=== PATIENT | female | born 1965 | race Native Hawaiian/Other Pacific Islander ===

== ENCOUNTER → 2016-09-09 | Outpatient (CLI) | payer BC ==
[~2016-09-09] MED LIST: AMLO5TAB2 PO; CYCL-36 PO; CYCL1TAB29 PO; GABA300C3 PO; GABA300C5 PO; NORC10TA2 PO; SYNT200T PO; TOPA50TA7 PO; TOPI50TA4 PO
--- NOTE | 2016-09-10 08:30 | RSPPFT ---
DATE OF PROCEDURE: 09/09/16 COMMENTS: VOLUMES DYNAMIC: FVC and FEV1 pre-bronchodilator severely reduced; post-bronchodilator normal. STATIC: VTG and RV normal; TLC mildly decreased. FLOWS: FEV1% normal; FEF 25-75 pre-bronchodilator severely reduced; post-bronchodilaotr Normal. DIFFUSION: Unable to perform. FLOW VOLUME LOOP: Post-bronchodilator restricted. IMPRESSION: These are difficult to interpret because post-bronchodilator her pulmonary function is nearly normal. The pre-bronchodilator study is probably inaccurate. She was unable to perform the diffusion capacity and her total lung capacity was mildly restricted at 63%. Clinical correlation is required.
== END ==
LOC: HRSP 09:41
PROVIDERS: ATTEND Internal Medicine Cardiovascular Disease
DX: R06.02 Shortness of breath (principal)
CPT/HCPCS: 94060; 94726; 94729

== ENCOUNTER 2017-03-22 10:26 | Day surgery (SDC) | payer BC ==
[~2017-03-22] VITALS: Ht 165.1 cm; Wt 58.4 kg
[2017-03-22] MEDS ORDERED: IOHEXOL 350 MG/ML 50 ML BTL (for Cath Lab) OTHER ONE (10:27)
[2017-03-22] MEDS ORDERED: PULM1SUS NEB (11:01)
[2017-03-22] MEDS ORDERED: BROV15NE NEB (11:01)
[2017-03-22] MEDS ORDERED: LEVO.2 PO (11:01)
[2017-03-22] MEDS ORDERED: TRAD5TAB PO (11:01)
[2017-03-22] MEDS ORDERED: FURO1TAB62 PO (11:01)
[2017-03-22] MEDS ORDERED: ISOS30TA3 PO (11:01)
[2017-03-22] MEDS ORDERED: ASPI81TA81 (11:01)
[2017-03-22 11:05] VITALS: BP 153/104; PULSE 86; RESP 18; TEMP 98.2; O2SAT 96
[2017-03-22] MEDS ORDERED: NS 1000P @30 MLS/HR (KVO) IV SCH (11:15)
[2017-03-22 11:43] LABS: AUTOMATED NEUTROPHIL # 6.6 TH/MM3 (1.8-7.7); BASOPHIL # 0.1 TH/MM3 (0-0.2); BASOPHIL % 0.5 % (0.0-2.0); EOSINOPHIL # 0.1 TH/MM3 (0-0.4); EOSINOPHIL % 0.8 % (0.0-4.0); HEMATOCRIT 35.6 % (35.0-46.0); HEMO FLAGS DIFF FINAL; LYMPH % 29.4 % (9.0-44.0); MEAN CELL VOLUME 70.8 FL (80.0-100.0); MEAN CORPUSCULAR HEMOGLOBIN 22.3 PG (27.0-34.0); MEAN CORPUSCULAR HGB CONC 31.5 % (32.0-36.0); MONO % 5.3 % (0.0-8.0); PLATELET COUNT 355 TH/MM3 (150-450); RED BLOOD COUNT 5.03 MIL/MM3 (4.00-5.30); RED CELL DISTRIBUTION WIDTH 16.7 % (11.6-17.2); WHITE BLOOD COUNT 10.3 TH/MM3 (4.0-11.0)
[2017-03-22 11:46] LABS: APTT (PATIENT) 28.6 SEC (24.3-30.1); INTERNATIONAL NORMALIZED RATIO 0.9 RATIO; PROTHROMBIN TIME - PATIENT 10.3 SEC (9.8-11.6)
[2017-03-22 12:05] LABS: BICARBONATE 24.3 MEQ/L (21.0-32.0); POTASSIUM 3.3 MEQ/L (3.5-5.1)
[2017-03-22] MEDS ORDERED: SODIUM CHLOR 0.9% 1000 ML INJ 1,000 ML IV SCH (12:57)
[2017-03-22] MEDS ORDERED: ASPIRIN 325 MG TAB PO SCH (13:00)
[2017-03-22] MEDS ORDERED: HEPARIN-NS/PF INJ 1,000 ML ONE (14:09)
[2017-03-22] MEDS ORDERED: SODIUM CHLORID 0.9% 500 ML INJ 500 ML ONE (14:11)
[2017-03-22] MEDS ORDERED: MIDAZOLAM HCL 2 MG/2 ML VIAL ONE ×2 (14:14→14:31)
--- NOTE | 2017-03-22 15:08 | CATHPROC ---
[facility] HIS Report Study Information Study Number Admission Scheduled Start Study Start [id number] Mar 22 2017 10:26AM 03/22/2017 Mar 22 2017 2:10PM [place] Cardiac Catheterization Admit Source Facility Department Other [facility] - Housekeeping Laundry Worker Physician and Clinical Staff Initial MD Gray, Karen Offender Job Retention Specialist Ezekiel RN, Kareem Other Vick Tinsley,CATHY Recorder Katrin Aguilar,(R) Scrub Tip Arias RCIS(BS) Procedures Performed Procedure Location (Site) Vessel Name Coronary Angiograms LCA Left Coronary Coronary Angiograms RCA Right Coronary L Heart Cath LV Gram-hand inj. LV LV Ventricle Wire insertion Fem Art (right) Femoral Art Equipment Time Assistant Accounting Manager Description Size Mfg Part Number Used/Scraped TRANSDUCER, TRSCOTTY [id number] 14:18 Remitly * Used W/STOCKCOCK *[id number] [id number] *[id number] [id number] *[id number] [id number] *[id number] [id number] *[id number] 14:18 [employer] PACK, CCL CUSTOM * Used *[id number] 14:18 [employer]. PACER PEN, SKIN DUAL W/ RULER * Used *[id number] 14:18 [employer] WIRE, 3MMJ .035 180CM 180CM Used *[id number] PROBE COVER, STERILE [id number] 14:18 [employer] * Used ULTRASOUND W/ GEL *[id number] 14:18 NAMIC MANIFOLD, 4 PORT * Used *[id number] 14:18 [employer]COMED OMNIPAQUE, 350 MG, 150ML 150ML [id number] Used 14:37 [employer]COMED OMNIPAQUE, 350 MG, 150ML 150ML [id number] Used 14:37 NYCOMED OMNIPAQUE, 350 MG, 150ML 150ML [id number] Used [id number] 14:18 [employer],WARM AIR CCL * Used *[id number] 14:18 [employer] MEDICAL SHEATH, FR4 TERUMO (10CM) FR 4 Used *[id number] History: Current Medications Medication Dosage/Unit Route Frequency Last Date/Time Taken ASA Synthroid HCTZ LASIX NORVASC History: Allergies Allergy Reaction meperidine Nausea/Vomiting History: Risk Factors Family History of Hypertension Dyslipidemia Previous [place] Previous Heart Failure Premature CAD Yes No No No No Prior Valve Prior PCI Prior CABG Surgery No No No Cerebrovascular Peripheral Artery Chronic Lung On Dialysis Diabetes Diabetes Therapy Disease Disease Disease No Yes No No Yes Oral History: Symptoms/Diagnosis Selection Items Chest pain SOB History: Stress Tests Stress or Imaging Studies Performed Yes Standard Exercise Stress Test No Stress Echo No Stress Test SPECT Stress Test SPECT Result Yes Negative Stress Test CMR No Cardiac CTA Coronary Calcium Score No No History: Other Disease Selection Items HTN History: Other Current Smoker No Labs Hgb (g/dl) Hct (%) RBC (MIL/MM3) WBC (l/cumm) Platelets (thousands) 11.60-17.00 35.00-51.00 4.00-5.90 4.00-11.00 150.00-450.00 11.2 35.6 5 10.3 355 Glucose (mg/dl) BUN (mg/dl) Creatinine (mg/dl) BUN:Creatinine (1:x) 74.00-106.00 7.00-18.00 0.50-1.30 10.00-20.00 167 9 0.8 11.3 Na (meq/l) K (meq/l) Cl (meq/l) CO2 (mmol/L) Ca (mg/dl) 136.00-145.00 3.50-5.10 98.00-107.00 21.00-32.00 8.50-10.10 139 3.3 106 24.3 7.8 PT (sec) PTT (sec) INR (PTT:PT) 9.80-11.60 24.30-30.10 0.90-1.10 10.3 28.6 0.9 CPK-MB (ng/ML) 0.50-3.60 Not Drawn Medication Medication Total Dose (Bolus/Oral) Medication Total Dosage/Unit 1% XYLOCAINE 20 mL FENTANYL 200 mcg VERSED 4 mg Medications (Bolus/Oral) Medication Time Given Dosage/Unit Administered By Reason FENTANYL 03/22/2017 2:16:58 PM 50 mcg Kareem Falcon RN 50 mcg FENTANYL given in lab by Kareem Flacon RN via Peripheral IV. VERSED 03/22/2017 2:17:40 PM 2 mg Kareem Falcon RN 2 mg VERSED given in lab by Kareem Falcon RN via Peripheral IV. 1% XYLOCAINE 03/22/2017 2:23:02 PM 20 mL Jamidar, Humayun 20 mL 1% XYLOCAINE given in lab by Karen Gray in Right Groin via Subcutaneous. FENTANYL 03/22/2017 2:24:40 PM 50 mcg Ezekiel AGUIRRE, Kareem 50 mcg FENTANYL given in lab by Kareem Falcon RN via Peripheral IV. FENTANYL 03/22/2017 2:32:46 PM 50 mcg Ezekiel AGUIRRE, Kareem 50 mcg FENTANYL given in lab by Kareem Falcon RN via Peripheral IV. VERSED 03/22/2017 2:35:00 PM 1 mg Kareem Falcon RN 1 mg VERSED given in lab by Kareem Falcon RN via Peripheral IV. FENTANYL 03/22/2017 2:43:40 PM 50 mcg Kareem Falcon RN 50 mcg FENTANYL given in lab by Kareem Falcon RN via Peripheral IV. VERSED 03/22/2017 2:44:17 PM 1 mg Kareem Falcon RN 1 mg VERSED given in lab by Kareem Falcon RN via Peripheral IV. Medication (Drip) Medication Time Given Dosage/Unit Concentration/Unit Diluent (ml) Solution IV Solutions 03/22/2017 2:11:10 PM 0 mL (IV) 500 NaCl .9 Patient arrived on IV Solutions in Left Antecubital via Peripheral IV. Pump/Drip Flow = 20 ml/hr usin g NaCl .9. Initial Case Assessment Cardiovascular HR Rhythm NIBP Chest Pain 89 REG 148/93 0 Edema Present Skin color Skin None Normal Warm Circulatory - Right Pulses Dorsalis Pedis Femoral 3 2 Scale (0,1,2,3,4,d) Circulatory - Left Pulses Dorsalis Pedis Femoral 3 2 Scale (0,1,2,3,4,d) Circulatory - Lower Extremities Color Lower Right Color Lower Left Normal Normal Neurological State Oriented to time-place- Alert Moves all extremities person Respiration - General Respiration Rate SpO2 (%) (B/min) 14 100 Final Case Assessment Cardiovascular HR Rhythm NIBP Chest Pain 97 REG 148/91 0 Edema Present Skin color Skin None Normal Warm Circulatory - Right Pulses Dorsalis Pedis Femoral 2 2 Scale (0,1,2,3,4,d) Circulatory - Left Pulses Dorsalis Pedis Femoral 2 2 Scale (0,1,2,3,4,d) Circulatory - Lower Extremities Color Lower Right Color Lower Left Normal Normal Neurological State Oriented to time-place- Alert Moves all extremities person Respiration - General Respiration Rate SpO2 (%) (B/min) 11 100 Chronological Log Time Study Chronological Log 14:05:44 Patient arrived via Bed. 14:10:48 Patient Name, D.O.B, / Armband Verified By R.N. 14:10:49 Consent signed by the physician and the patient and verified by the Housekeeping Laundry Worker staff. 14:10:52 Pre-op and post- op instructions given; patient acknowledges understanding of instructions. 14:10:53 Verbal Stimulation=2 Physical Stimulation=2 Airway=2 Respiration=2 TOTAL=8. (0=absent, 1=li mited, 2=present) 14:10:57 Patient has been NPO for More than 6Hrs. 14:10:58 Skin Breakdown-NONE 14:11:02 A # 20 IV was noted in the Antecubital (left). Grade = 0 14:11:10 Patient arrived on IV Solutions in Left Antecubital via Peripheral IV. Pump/Drip Flow = 20 ml/hr using NaCl .9. 14:11:28 History and physical on the chart or being dictated. Assessment: Initial Case, HR=89 BPM, Rhythm=REG, MWWW=152/93 mmhg, Chest Pain=0, Edema=None, Color=Normal, Skin = Warm Right Pulses: Hemanth Ped=3, Femoral=2 Left Pulses: Hemanth Ped=3, Femoral=2 14:11:29 Lower Right Extremities: Color=Normal Lower Left Extremities: Color=Normal Neurological: State=Alert, Ox3, PATIÑO Respiration: Resp=14 B/min, JsC7=205 % 14:11:35 Reference ECG taken Vitals capture started with the following parameters, Patient=Adult, Interval=3 min, Initial Pr goumzo=145 mmHg, 14:11:43 Deflation Rate=5 mmHg, Cuff placed on RIGHT ARM 14:12:22 HR=89 bpm, SGWB=316/93 mmhg, KtV2=536.0 %, Resp=13 B/min, Pain=0, Yadira=10, Morton=2 14:13:13 Bilateral groins prepped with 2% chlorhexidine, and draped after a 3 minute waiting time. 14:13:17 MD arrived. 14:13:20 The Physician was on time. 14:15:22 HR=91 bpm, XDVG=652/90 mmhg, DrB0=809.0 %, Resp=20 B/min, Pain=0, Yadira=10, Morton=2 14:16:58 50 mcg FENTANYL given in lab by Kareem Falcon RN via Peripheral IV. 14:17:40 2 mg VERSED given in lab by Kareem Falcon RN via Peripheral IV. 14:18:25 HR=91 bpm, TGAB=654/88 mmhg, NtH4=589.0 %, Resp=14 B/min, Pain=0, Yadira=10, Morton=2 14:18:43 Pressure channel 1 zeroed. 14:21:21 HR=91 bpm, IYQR=554/87 mmhg, SpO2=96.0 %, Resp=14 B/min, Pain=0, Yadira=10, Morton=2 Time Out. Correct patient, correct procedure, correct physician, power injector not loaded with contrast with surgical 14:22:37 team present. Time Out Concurred by MD and individual staff in procedure. 14:22:46 Case Start 14:22:56 Verbal Stimulation=2 Physical Stimulation=2 Airway=2 Respiration=2 TOTAL=8. (0=absent, 1=li mited, 2=present) 14:23:02 20 mL 1% XYLOCAINE given in lab by Karen Gray in Right Groin via Subcutaneous. 14:24:21 HR=90 bpm, BZCI=263/91 mmhg, SpO2=98.0 %, Resp=16 B/min, Pain=0, Yadira=10, Morton=2 14:24:40 50 mcg FENTANYL given in lab by Kareem Falcon RN via Peripheral IV. 14:27:25 HR=89 bpm, NJXO=176/79 mmhg, SpO2=96.0 %, Resp=12 B/min, Pain=0, Yadira=10, Morton=2 14:29:57 Access site was Right Femoral Artery.RT 14:30:08 A wire was inserted via Fem Art (right). 14:30:12 A SHEATH, FR4 TERUMO (10CM) FR 4 was advanced into the Fem Art (right) using the Percutaneo us technique. 14:30:23 HR=89 bpm, TUDB=392/85 mmhg, SpO2=98.0 %, Resp=13 B/min, Pain=0, Yadira=10, Morton=2 A JL 4.0 INFINITI CATHETER FR 4 was advanced over a wire. OMNIPAQUE, 350 MG, 150ML 150ML was us ed for 14:31:08 injections. Recorded Pressure: Ao, HR=88, Condition=Condition 1 14:32:18 (Aorta) Ao 117/74/93 14:32:46 50 mcg FENTANYL given in lab by Kareem Falcon RN via Peripheral IV. 14:33:22 The LCA was injected and visualized at various angles. OMNIPAQUE, 350 MG, 150ML 150ML used . 14:33:24 HR=86 bpm, YQPF=405/84 mmhg, SpO2=94.0 %, Resp=19 B/min, Pain=0, Yadira=10, Morton=2 14:34:22 Catheter was removed A 3DRC INFINITI CATHETER FR 4 was advanced over a wire. OMNIPAQUE, 350 MG, 150ML 150ML was used for 14:34:52 injections. 14:35:00 1 mg VERSED given in lab by Kareem Falcon RN via Peripheral IV. 14:35:48 The RCA was injected and visualized at various angles. OMNIPAQUE, 350 MG, 150ML 150ML used . 14:36:19 Catheter was removed A PIGTAIL ANG. INFINITI CATHETER FR 4 was advanced over a wire. OMNIPAQUE, 350 MG, 150ML 150ML was used 14:36:21 for injections. 14:37:09 HR=91 bpm, KMUF=996/88 mmhg, SpO2=98.0 %, Resp=10 B/min, Pain=0, Yadira=10, Morton=2 Recorded Pressure: LV, HR=95, Condition=Condition 1 14:38:27 (Left Ventricle) LV 151/5/11 14:38:37 The LV was manually injected with 12 cc's and visualized. OMNIPAQUE, 350 MG, 150ML 150ML us ed. Recorded Pressure: LV, Ao, HR=93, Condition=Condition 1 14:38:54 (Left Ventricle) LV 136/0/13, (Aorta) Ao 136/82/106 14:39:26 HR=93 bpm, THLG=145/81 mmhg, SpO2=99.0 %, Resp=14 B/min, Pain=0, Yadira=10, Morton=2 14:40:48 Catheter was removed A MPA-2 INFINITI CATHETER FR 4 was advanced over a wire. OMNIPAQUE, 350 MG, 150ML 150ML was use d for 14:41:12 injections. Recorded Pressure: LV, HR=53, Condition=Condition 1 14:42:34 (Left Ventricle) LV 125/4/16 Recorded Pressure: LV, HR=95, Condition=Condition 1 14:42:56 (Left Ventricle) LV 144/5/9 14:42:57 HR=94 bpm, TIBP=147/91 mmhg, SpO2=99.0 %, Resp=13 B/min, Pain=0, Yadira=10, Morton=2 Recorded Pressure: LV, Ao, HR=95, Condition=Condition 1 14:43:07 (Left Ventricle) LV 130/3/9, (Aorta) Ao 134/70/91 14:43:35 Catheter was removed 14:43:39 Case End 14:43:40 50 mcg FENTANYL given in lab by Kareem Falcon RN via Peripheral IV. Assessment: Final Case, HR=97 BPM, Rhythm=REG, WFGM=463/91 mmhg, Chest Pain=0, Edema=None, [place] r=Normal, Skin = Warm Right Pulses: Hemanth Ped=2, Femoral=2 Left Pulses: Hemanth Ped=2, Femoral=2 14:43:44 Lower Right Extremities: Color=Normal Lower Left Extremities: Color=Normal Neurological: State=Alert, Ox3, PTAIÑO Respiration: Resp=11 B/min, ZuX8=693 % 14:44:17 1 mg VERSED given in lab by Kareem Falcon RN via Peripheral IV. 14:44:46 Catheter(s) removed without difficulty 14:44:53 Sterile dressing applied to site 14:44:56 No case complications noted. 14:44:58 Cine recording checked. 14:45:00 Bedside Report will be given. 14:45:10 Contrast Scanned 14:45:12 A Left Heart Cath was performed. 14:45:17 Clinical correlaton risk stratification. 14:45:27 HR=89 bpm, OMZI=070/79 mmhg, SpO2=98.0 %, Resp=11 B/min, Pain=0, Yadira=10, Morton=2 14:46:58 Sheath removed; pressure applied to access site. TIP ARIAS 14:48:25 HR=89 bpm, IKOU=018/83 mmhg, SpO2=99.0 %, Resp=11 B/min, Pain=0, Yadira=10, Morton=2 14:51:23 HR=88 bpm, DFRN=628/89 mmhg, SpO2=99.0 %, Resp=11 B/min, Pain=0, Yadira=10, Morton=2 14:54:21 HR=97 bpm, CHWV=869/96 mmhg, SgR5=807.0 %, Resp=13 B/min, Pain=0, Yadira=10, Morton=2 14:57:24 HR=88 bpm, JIAE=034/79 mmhg, SpO2=99.0 %, Resp=12 B/min, Pain=0, Yadira=10, Morton=2 15:00:24 HR=86 bpm, VKNN=035/87 mmhg, SpO2=99.0 %, Resp=13 B/min, Pain=0, Yadira=10, Morton=2 15:03:28 HR=83 bpm, DPFM=450/78 mmhg, VtH2=680.0 %, Resp=20 B/min, Pain=0, Yadira=10, Morton=2 15:06:39 HEMASTASIS ACHIEVED End Study - Contrast Media Used In Study Contrast Total Opened (mL) Total Used (mL) Total Wasted (mL) Omnipaque 40 40 0 End Study - Maximum Contrast Load Max Contrast Load (mL) 365.1 End Study - Radiation Exposure Fluoro Time (minutes) 2.6 End Study - Sheaths Sheaths Pulled By Sheath Hold Time (min) Tip Arias End Study - Patient Disposition Complications Transferred To No Outpatient Bed
--- NOTE | 2017-03-22 16:25 | EKG ---
Date Performed: 03/22/2017 Time Performed: 11:09:14 PTAGE: 51 years EKG: Sinus rhythm . Normal ECG PREVIOUS TRACING : 04/04/2015 12.09 Compared to prior tracing no significant change DOCTOR: Jose R Darden Interpretating Date/Time 03/22/2017 16:23:12
--- NOTE | 2017-03-22 21:07 | MP ---
cc: KAREN GRAY MD, JESSIE, DR. DATE OF SURGERY 03/22/17 INDICATION Unstable angina CONSENT Full informed consent was obtained prior to procedure. Risks of , bleeding, myocardial infarction, perforation, aspiration, foreseen and unforeseen complications reviewed. The patient fully appeared to understand the risks. PROCEDURAL STATEMENT The patient draped and prepped in usual manner. The right femoral artery was entered using micropuncture technique with ultrasound. Via the 4-Kittitian sheath, the left and right coronary catheters were used to intubate the left and right coronary arteries. Pigtail catheter used to intubate the left ventricle. Multiple angiographic views were carried out. At the end of the catheterization procedure, all catheters and sheaths were removed and pressure applied to the wound until hemostasis was achieved. The patient returned to her room in stable condition. FINDINGS HEMODYNAMICS: Aortic pressure was 134/70 with a mean of 91. The left ventricular pressure was 130 with a left ventricular end-diastolic pressure of 9. There was no evidence of significant gradient on pullback across the LV outflow tract or aortic valve. VENTRICULOGRAPHY The overall left ventricular ejection fraction was 60. There was no evidence of significant mitral regurgitation or mural thrombus. CORONARIES Left main was large and free of significant disease. The left anterior descending artery was a large vessel with a medium size first diagonal branch, was free of significant disease. The intermediate ramus vessel was large and free of significant disease. Circumflex was a medium-sized vessel with a medium-sized obtuse marginal branch and free of significant disease. The second obtuse marginal branch was small. The right coronary artery was a moderate-sized vessel with a moderate size posterior descending artery. It was free of significant disease. CONCLUSION Normal LV function, normal coronaries. No evidence of significant disease. Karen Grya MD, FRCP,[facility]/ /2:53 PM /8:49 PM
== END 2017-03-22 19:01 | disposition home or self-care (01) ==
LOC: HCAT 10:26 → HDIC 10:26 → HCAT 19:01
PROVIDERS: ATTEND Internal Medicine Cardiovascular Disease
DX: I20.0 Unstable angina (principal); I10 Essential (primary) hypertension; E03.9 Hypothyroidism, unspecified; Z79.899 Other long term (current) drug therapy; Z85.850 Personal history of malignant neoplasm of thyroid
CPT/HCPCS: 80048; 85025; 85610; 85730; 93005; 93458; C1769; C1893; J1644; J2250; J3010; J7040; Q9967